=== PATIENT | male | born 2000 | race Caucasian/White ===

== ENCOUNTER 2023-08-05 08:40 | Emergency (ER) | payer BC, OTHER ==
[2023-08-05] MEDS ORDERED: Boostrix 0.5 ML (Tdap) VIAL (>/=7 yrs of age) ONE (09:06)
[2023-08-05] MEDS ORDERED: Lidocaine 1% PF 5 ML VIAL ONE (09:10)
[2023-08-05] MEDS ORDERED: HYDROcodone/Acetaminophen 5/325 mg Tablet ONE ×2 (09:20→10:13)
[2023-08-05] MEDS ORDERED: Lidocaine 1% (PF) 30 ML VIAL ONE (09:52)
[2023-08-05] MEDS ORDERED: Bacitracin 1 PK ONE (11:16)
== END 2023-08-05 11:40 | disposition home or self-care (01) ==
LOC: ERS 08:40
DX: S67.191A Crushing injury of left index finger, initial encounter (principal); S61.311A Laceration without foreign body of left index finger with damage to nail, initial encounter; W23.0XXA Caught, crushed, jammed, or pinched between moving objects, initial encounter; Y93.89 Activity, other specified; Y92.69 Other specified industrial and construction area as the place of occurrence of the external cause; Z23 Encounter for immunization
CPT/HCPCS: 12042; 90471; 90715; J2001

== ENCOUNTER 2024-12-04 06:41 | Day surgery (SDC) | payer BC ==
[2024-12-03 10:48] VITALS: BMI 22.2
[2024-12-04] MEDS ORDERED: Thrombin 5000 UNITS/5 ML VIAL ONE (07:02)
[2024-12-04] MEDS ORDERED: Bacitracin Zinc Ointment 30 gm TUBE ONE (07:02)
[2024-12-04] MEDS ORDERED: CEFAZOLIN 2 GM VIAL ONE (07:20)
[2024-12-04 07:27] LABS: #Basophils 0.12 10x3/uL (0.0-0.2); #Eosinophils 1.72 10x3/uL (0.0-0.7); #Monocytes 0.74 10x3/uL (0.11-0.59); #Neutrophils 2.37 10x3/uL (1.40-6.50); %Basophils 1.6 % (0.0-1.0); %Eosinophils 22.2 % (0.0-10.0); %Lymphocytes 35.8 % (21.0-51.0); %Monocytes 9.6 % (0.0-10.0); %Neutrophils 30.5 % (42.0-75.0); Hematocrit 48.0 % (42.0-52.0); Hemoglobin 16.0 g/dL (14.0-18.0); Mean Corpuscular Hemoglobin 29.2 pg (27.0-31.0); Mean Corpuscular Volume 87.6 fL (78.0-98.0); Platelet Count 248 10x3/uL (130-400); Red Blood Cell (RBC) Count 5.48 mill/uL (4.70-6.10); White Blood Cell (WBC) Count 7.74 10x3/uL (4.8-10.8)
[2024-12-04] MEDS ORDERED: PROPOFOL 20 ML ONE (07:33)
[2024-12-04] MEDS ORDERED: Lidocaine 1% PF 5 ML VIAL ONE (07:36)
[2024-12-04] MEDS ORDERED: Ondansetron PF 4 MG/2 ML Vial ONE (07:36)
[2024-12-04] MEDS ORDERED: fentaNYL PF 100 MCG/2 ML SYRINGE ONE (07:45)
[2024-12-04] MEDS ORDERED: Ketorolac Tromethamine 30 MG (1 mL) VIAL ONE (10:18)
== END 2024-12-04 11:30 | disposition home or self-care (01) ==
LOC: SDC 06:41
PROVIDERS: ATTEND Orthopaedic Surgery Hand Surgery
PROC: 0PBV0ZZ Excision of Left Finger Phalanx, Open Approach (ICD-10-PCS; principal; 2024-12-04)
PROC: 0HDQXZZ Extraction of Finger Nail, External Approach (ICD-10-PCS; principal; 2024-12-04)
DX: M86.9 Osteomyelitis, unspecified (principal)
CPT/HCPCS: 85025; 86141; 87070; 87077; 87205; 88304; 88305; 88307; 88311; C1713; J0665; J1100; J1885; J2250; J2704; J3373